=== PATIENT | female | born 2000 | race Caucasian/White ===

== ENCOUNTER 2021-07-29 19:58 | Emergency (ER) | payer MEDICAID, SELFPAY ==
[2021-07-29 19:59] VITALS: BP 145/102; PULSE 128; RESP 16; TEMP 36.1; O2SAT 98; BMI 40.2
--- NOTE | 2021-07-29 22:41 | ED.VIS.BACK ---
HPI History of Present Illness Chief Complaint: Back Informant: patient Narrative Narrative: Patient is a 21 old female denies any significant past medical history presenting with sudden onset of low back pain. Patient states she was getting undressed this afternoon to take a shower when she suddenly felt pain in her lower back. She states symptoms. Denies any saddle anesthesia. Is never had anything like this before. Denies any trauma or injury. Did not take anything for pain prior to arrival. it is on both sides. Does not radiate. Denies any bowel or bladder. Is not concerned for . Prior similar symptoms: No PFSH PFSH Medical History History of scoliosis Home Medications cyclobenzaprine 10 mg PO TID PRN #14 tab 07/29/21 [Rx Last Taken Unknown] ibuprofen 600 mg PO Q6H PRN PRN #20 tab 07/29/21 [Rx Last Taken Unknown] Allergy/AdvReac Type Severity Reaction Status Date / Time No Known Allergies Allergy Verified 05/24/17 09:36 Social History Smoking Status: Former smoker ROS ROS ED Constitutional Constitutional ED: Denies chills or fever(s) Eyes Eyes: Denies change in vision ENT ENT ED: Denies rhinorrhea or sore throat Cardiovascular Cardiovascular: Denies chest pain Respiratory/Chest Respiratory/Chest: Denies dyspnea Gastrointestinal Gastrointestinal: Denies abdominal pain, constipation, nausea or vomiting Genitourinary Genitourinary ED: Denies dysuria, hematuria or urinary frequency Musculoskeletal Musculoskeletal: Reports back pain; Denies arthralgias, myalgias or neck pain Integumentary Denies rash Neurologic Neurologic: Denies headache(s), paresthesias or weakness Psychiatric Psychiatric: Denies depression EXAM Physical Exam Narrative Exam Narrative: Patient standing in the room Const Vital Signs: 07/29/21 19:59 Temperature 96.9 F L Temperature Source Temporal Pulse Rate 128 H Respiratory Rate 16 Blood Pressure 145/102 H Blood Pressure Mean 116 Pulse Ox 98 Oxygen Delivery Method Room Air Positive well nourished and well developed General Appearance ED: well developed HEENT Reports moist mucous membranes Negative for tenderness Eyes PERRL and EOMs intact bilaterally Neck supple Neck Narrative: Normal ROM General: Negative for tenderness Resp normal respiratory effort and clear to auscultation bilaterally Cardio regular rate, regular rhythm and no murmurs GI normal to inspection, nondistended, normoactive bowel sounds Back/Spine normal to inspection Back/Spine Narrative: No midline tenderness. Patient points to bilateral L5/L4 area as her area of pain. Not significantly reproducible with palpation. Decreased range of motion, suspect secondary to pain. Normal bilateral patellar reflexes. Normal strength and sensation with plantar and dorsiflexion of the feet as well as flexion and extension of the legs. General Back: Negative for CVA tenderness Extremity normal to inspection General Extremety ED: Negative for edema or tenderness General Extremity: Negative for edema Neuro oriented x3 and no sensory deficits noted Sensorium / Orientation: alert Motor Exam: strength 5/5 throughout Skin no rashes or lesions noted and no wounds MDM MDM MDM Narrative Medical decision making narrative: Patient evaluated for atraumatic low back pain. She appears nontoxic in no acute distress. She does appear uncomfortable secondary to pain. On arrival she is hypertensive and tachycardic. I suspect this is a pain response. She is given ibuprofen and Flexeril in the ER for pain control. She declines IM morphine. She will be started on a course of NSAIDs and muscle relaxers. I suspect this is muscle skeletal. She does not have any focal neurologic deficits. No findings consistent with cauda equina syndrome. Counseled on return precautions and need for outpatient follow-up especially if her symptoms persist. Patient is counseled on signs and symptoms requiring return to the emergency room. Patient verbalizes agreement and understand this plan. Patient discharged home in stable and improved condition. Discharge Plan Triage Chief Complaint: Back ED Provider: Ayana Wilson Dx/Rx/DC Orders Clinical Impression: Acute lumbar back pain Instructions: ED Back Pain (Acute or Chronic), ED Back Spasm, No Trauma Prescriptions: New ibuprofen 600 mg tablet 600 mg PO Q6H PRN PRN (Reason: fever or pain) Qty: 20 RF: 0 cyclobenzaprine 10 mg tablet 10 mg PO TID PRN (Reason: muscle spasm) Qty: 14 RF: 0 Primary Care Provider: Care Physician,No Primary Referrals: Britany Forbes MD [STAFF PHYSICIAN] - Care Physician,No Primary [Primary Care Provider] - Disposition Disposition: Home, Self Care
[2021-07-29] MEDS: Ibuprofen 600 MG Tablet PO (23:18)
== END 2021-07-29 23:20 | disposition home or self-care (01) ==
LOC: ED 22:46
PROVIDERS: Emergency Provider Emergency Medicine
DX: M54.50 Low back pain, unspecified (principal); Z87.891 Personal history of nicotine dependence
CPT/HCPCS: 99283

== ENCOUNTER 2023-02-07 13:52 | Emergency (ER) | payer MEDICAID, SELFPAY ==
[2023-02-07 13:54] VITALS: BP 156/83; PULSE 150; RESP 18; TEMP 37.3; O2SAT 100; BMI 29.2
[2023-02-07 14:42] VITALS: TEMP 39.4
--- NOTE | 2023-02-07 14:54 | EX.ED.DYSGE1 ---
HPI <MARVA Curry - Last Filed: 02/07/23 16:08> History of Present Illness Chief Complaint: Sore Throat Narrative Narrative: Patient is a 23-year-old female with no significant medical history presents to the emergency department 2 days of sore throat, head pain, fever and chills. She also states to have been spotting for 2 weeks. She is unsure if she is or not. Patient denies any nausea or vomiting. Her son just got diagnosed with strep throat. She was tested however was negative. She also had a negative COVID-19 negative. She denies any nausea or vomiting. States he is only been taking NyQuil for pain. Denies any cough or shortness of breath. PFS <MARVA Curry - Last Filed: 02/07/23 16:08> [facility] Medical History (Updated 02/07/23 @ 16:06 by MARVA Curry) History of scoliosis Hx of Home Medications amoxicillin 875 mg-potassium clavulanate 125 mg tablet 1 tab PO BID #20 tabs 02/07/23 [Rx Last Taken Unknown] Allergy/AdvReac Type Severity Reaction Status Date / Time No Known Allergies Allergy Verified 02/07/23 13:57 Social History Smoking Status: Former smoker ROS <MARVA Curry - Last Filed: 02/07/23 16:08> ROS ED ROS Narrative Constitutional: Negative for weight loss, weakness. Positive fever and chills Eyes: Negative for vision loss, vision change, double vision ENT: Positive for any sore throat, ear pain, congestion Cardiovascular: Negative for any chest pain, tightness, palpitations Respiratory: Negative for any cough, sputum production, hemoptysis, dyspnea, dyspnea on exertion, orthopnea Gastrointestinal: Negative for any abdominal pain, nausea, vomiting, diarrhea, constipation, blood in stool, blood in vomit : Negative for any urinary frequency, dysuria, retention, blood in urine. Vaginal spotting Muscle skeletal: Negative for any muscle joint pain, stiffness, arthralgias, neck pain, back pain. Myalgias Neurological: Negative for any headache, syncope, numbness or tingling, dizziness Skin: Negative for any rashes, lumps, itching, abrasions, lacerations Psychiatric: Negative for any depression, anxiety, stress, suicidal ideation, homicidal ideation Hematologic: Negative for any easy bruising, excessive bruising, easy bleeding Allergies: Negative for any eczema, hives, rash EXAM <Judah ClayMARVA caldera - Last Filed: 02/07/23 16:08> Physical Exam Const Vital Signs: 02/07/23 13:54 02/07/23 14:42 02/07/23 14:47 Temperature 99.2 F H 102.9 F H Temperature Source Temporal Oral Pulse Rate 150 H Respiratory Rate 18 Respiratory Effort Normal Respiratory Pattern Normal Blood Pressure 156/83 H Blood Pressure Mean 107 Pulse Ox 100 Oxygen Delivery Method Room Air <Dr. Ankit Lopez DO - Last Filed: 02/07/23 16:18> Physical Exam Narrative Exam Narrative: Vital signs reviewed. HEET: Head normocephalic atraumatic, TMs clear bilaterally. Posterior pharynx is clear, moist mucous membranes. Nares clear bilaterally. Positive for +3 tonsils, erythema, exudate bilaterally. There is no uvula deviation, there is no unilateral swelling. Patient speak complete senses, negative for any stridor or trismus. Neck: Supple with no lymphadenopathy or tenderness. No signs of meningismus, negative jolt sign. Cardiac: Tachycardic rate no murmurs gallops or rubs, equal peripheral pulses bilaterally. Respiratory: Lungs clear to auscultation bilaterally. No chest tenderness. Abdomen: Soft, nontender, nondistended. No abdominal bruit or pulsatile masses. No hepatosplenomegaly Extremities: No peripheral edema, no signs of gross trauma or deformity. Active full range of motion of all extremities. Neuro: Cranial nerves II through XII intact, no focal neurological deficits. Skin: Clean dry and intact with no rash, purpura, petechiae, vesicles or pustules. Backs/flank: No CVA tenderness, no midline spinal tenderness, no deformity. Psych: Normal mood and affect. No SI, HI or acute psychosis. Const Vital Signs: 02/07/23 13:54 02/07/23 14:42 02/07/23 14:47 Temperature 99.2 F H 102.9 F H Temperature Source Temporal Oral Pulse Rate 150 H Respiratory Rate 18 Respiratory Effort Normal Respiratory Pattern Normal Blood Pressure 156/83 H Blood Pressure Mean 107 Pulse Ox 100 Oxygen Delivery Method Room Air [facility] <Judah Carmona C D AREA SUPERVISOR-C - Last Filed: 02/07/23 16:08> [facility] Narrative Medical decision making narrative: Vital signs reviewed. HEET: Head normocephalic atraumatic, TMs clear bilaterally. Posterior pharynx is clear, moist mucous membranes. Nares clear bilaterally. Positive for +3 tonsils, erythema, exudate bilaterally. There is no uvula deviation, there is no unilateral swelling. Patient speak complete senses, negative for any stridor or trismus. Neck: Supple with no lymphadenopathy or tenderness. No signs of meningismus, negative jolt sign. Cardiac: Tachycardic rate no murmurs gallops or rubs, equal peripheral pulses bilaterally. Respiratory: Lungs clear to auscultation bilaterally. No chest tenderness. Abdomen: Soft, nontender, nondistended. No abdominal bruit or pulsatile masses. No hepatosplenomegaly Extremities: No peripheral edema, no signs of gross trauma or deformity. Active full range of motion of all extremities. Neuro: Cranial nerves II through XII intact, no focal neurological deficits. Skin: Clean dry and intact with no rash, purpura, petechiae, vesicles or pustules. Backs/flank: No CVA tenderness, no midline spinal tenderness, no deformity. Psych: Normal mood and affect. No SI, HI or acute psychosis. Lab Data Labs: Laboratory Results - last 24 hr 02/07/23 02/07/23 14:49 15:16 Urine Color Yellow Urine Clarity Sl. Cloudy Urine pH 6.5 Ur Specific [place] 1.015 Urine Protein 30 H Urine Glucose (UA) Normal Urine Ketones 150 A* Urine Occult Blood 150 H Urine Nitrite Negative Urine Bilirubin Negative Urine Urobilinogen 4 H Ur Leukocyte Esterase 25 H Urine RBC 0-5 SEEN Urine WBC 0-5 SEEN Ur Squamous Epith Cells 0-5 SEEN Urine Bacteria 1+ Urine Mucus 0 SEEN Urine Test Negative Monoscreen Negative Treatment and Re-Evaluation :: Patient appears uncomfortable, patient's repeat temperature was 102.9, patient presents emerged part with sore throat, head pain for 2 days. Patient did have negative COVID-19, negative strep test. The patient will be tested for as well as UTI secondary to the vaginal spotting. Patient will also be tested for mononucleosis, if this is negative, the patient's is negative, the patient will be given ibuprofen as well as dexamethasone. Secondary to the patient's physical presentation, elevated Centor score, I do believe that antibiotics is appropriate. Patient's urinalysis was negative for infection. Patient is not . Patient's monotest was negative. At this time, I do believe that is necessary to treat the patient with Augmentin, patient be given dexamethasone one-time here, as well as ibuprofen. She was given education regarding fever clay thrower such as Tylenol, ibuprofen. She will also follow-up with RESOURCE RO[employer] SPECIAL EDUCATION TEACHER for her spotting. Patient is happy with the plan of care, all questions answered. <Dr. Ankit Lopez, DO - Last Filed: 02/07/23 16:18> [facility] MDM Narrative Medical decision making narrative: Patient appears uncomfortable, patient's repeat temperature was 102.9, patient presents emerged part with sore throat, head pain for 2 days. Patient did have negative COVID-19, negative strep test. The patient will be tested for as well as UTI secondary to the vaginal spotting. Patient will also be tested for mononucleosis, if this is negative, the patient's is negative, the patient will be given ibuprofen as well as dexamethasone. Secondary to the patient's physical presentation, elevated Centor score, I do believe that antibiotics is appropriate. Patient's urinalysis was negative for infection. Patient is not . Patient's monotest was negative. At this time, I do believe that is necessary to treat the patient with Augmentin, patient be given dexamethasone one-time here, as well as ibuprofen. She was given education regarding fever clay thrower such as Tylenol, ibuprofen. She will also follow-up with [employer] SPECIAL EDUCATION TEACHER for her spotting. Patient is happy with the plan of care, all questions answered. This patient was seen with a PA/C D AREA SUPERVISOR Individually assessed they patient including history and physical. I have reviewed everything on the chart that is available and agree with the documentation provided by the PA/C D AREA SUPERVISOR including discussion about the assessment, treatment plan, discussion, and return precautions. Patient presenting with fever, sore throat. Her child tested positive for strep and she tested negative. She tells me that she does not believe they actually swab her tonsils and they probably swabbed her tongue. She was tested for mono today and it was negative. Given her sore throat is reasonable to treat her as strep throat given she has a sick child that has strep. Patient also wanted tested for because she is spotting. This was negative. Patient's fever is improved with ibuprofen and she will be discharged home in stable condition. Lab Data Labs: Laboratory Results - last 24 hr 02/07/23 02/07/23 14:49 15:16 Urine Color Yellow Urine Clarity Sl. Cloudy Urine pH 6.5 Ur Specific [place] 1.015 Urine Protein 30 H Urine Glucose (UA) Normal Urine Ketones 150 A* Urine Occult Blood 150 H Urine Nitrite Negative Urine Bilirubin Negative Urine Urobilinogen 4 H Ur Leukocyte Esterase 25 H Urine RBC 0-5 SEEN Urine WBC 0-5 SEEN Ur Squamous Epith Cells 0-5 SEEN Urine Bacteria 1+ Urine Mucus 0 SEEN Urine Test Negative Monoscreen Negative Discharge Plan Triage Chief Complaint: Sore Throat ED Midlevel Provider: Judah Carmona ED Provider: Ankit Lopez Dx/Rx/DC Orders Clinical Impression: Pharyngitis, Fever Instructions: ED Fever Control (Adult), ED Pharyngitis, Report Pending Prescriptions: New amoxicillin-pot clavulanate 875-125 mg tablet 1 tab PO BID Qty: 20 0RF Primary Care Provider: Care Physician,No Primary Referrals: Care Physician,No Primary [Primary Care Provider] - Activity Restrictions/Additional Instructions: Please take antibiotics until finished. Follow-up with your [employer] SPECIAL EDUCATION TEACHER Disposition Disposition: Home, Self Care
[2023-02-07] MEDS: Acetaminophen 500 MG Tablet 1000 MG PO (14:57)
[2023-02-07 15:22] LABS: Mucous, Urine 0 SEEN /hpf (<or=2+)
[2023-02-07 15:25] LABS: Color, Urine Yellow (Yellow); Glucose, Dipstick Normal (Normal); Leukocyte Esterase-Dipstick 25 /ul (Negative); Nitrite-Dipstick Negative (Negative); Occult Blood-Urine 150 /ul (Negative); Protein-Dipstick 30 mg/dl (Negative); Specific Gravity, Urine 1.015 (1.002-1.030); Urine Bilirubin Dipstick Negative (Negative); Urine Clarity Sl. Cloudy (Clear); Urine Urobilinogen 4 mg/dl (Normal); Urine pH 6.5 (5.0 - 8.0)
[2023-02-07 15:33] LABS: Ketone-Dipstick 150 mg/dl (Negative)
[2023-02-07 15:34] LABS: Red Blood Cells-Urine 0-5 SEEN /hpf (0-5); White Blood Cells 0-5 SEEN /hpf (0-5)
[2023-02-07 15:35] LABS: Bacteria 1+ /hpf (None Seen); Internal QC Validated? YES +Cl - CLEAR BKGD; Pregnancy, Urine Negative Negative; Squamous Epithelial Cells - UA 0-5 SEEN /hpf (5-10)
[2023-02-07 15:46] LABS: Internal QC Validated? YES +Cl - CLEAR BKGD; Monotest Negative (Negative)
[2023-02-07] MEDS: dexAMETHasone 4 MG Tablet 12 MG PO (16:17)
[2023-02-07] MEDS: Ibuprofen 600 MG Tablet PO (16:17)
[2023-02-07] MEDS: Amox/Clavulanate 875 MG Tablet PO (16:18)
== END 2023-02-07 16:23 | disposition home or self-care (01) ==
PROVIDERS: Nurse Practitioner; Emergency Provider Student in an Organized Health Care Education/Training Program; Visit Provider Student in an Organized Health Care Education/Training Program
DX: J02.9 Acute pharyngitis, unspecified (principal); Z87.891 Personal history of nicotine dependence; R50.9 Fever, unspecified
CPT/HCPCS: 81001; 81025; 86308; 99284

== ENCOUNTER 2023-02-16 13:22 | Emergency (ER) | payer MEDICAID, SELFPAY ==
[2023-02-16 13:23] VITALS: BP 128/85; PULSE 85; RESP 18; TEMP 35.7; O2SAT 99; BMI 28.5
--- NOTE | 2023-02-16 13:48 | EX.ED.DYSGE1 ---
HPI History of Present Illness Chief Complaint: Rash Detail of Chief Complaint: Recurrent raised red erythematous painful lesions predominantly hands and f Onset/Context/Timing Onset: Today Context: Sudden Onset Timing: Continuous Quality: Pain Location: Hands, forearm and in past knees Current Severity: Moderate Maximum Severity: Severe Worsened by: Nothing specific Relieved by: Nothing Associated Symptoms Associated Symptoms: None Narrative Narrative: Patient is a 23-year-old female with recurrent painful raised erythematous lesions on the fingers, hands, forearms presently. She reports prior lesions on her knees. She states she does not believe it is contagious since her family members have not gotten it i.e. son. She denies fever, chills night sweats. She denies myalgias arthralgias. She denies weight gain or weight loss. She denies swelling of her joints. Prior similar symptoms: Yes Recent Illness/Hospitalization: No PFSH PFSH Medical History History of scoliosis Hx of Home Medications amoxicillin 875 mg-potassium clavulanate 125 mg tablet 1 tab PO BID #20 tabs 02/07/23 [Rx Last Taken Unknown] Allergy/AdvReac Type Severity Reaction Status Date / Time No Known Allergies Allergy Verified 02/07/23 13:57 Social History (Updated 02/16/23 @ 13:[address] Yovanny Marquez MD) household members: children Smoking Status: Former smoker ROS ROS ED Constitutional Constitutional ED: Denies chills, subjective, sweats or weight loss Musculoskeletal Musculoskeletal: Denies arthralgias or myalgias Integumentary Reports rash Hematologic/Lymphatic Hematologic/Lymphatic: Reports systems reviewed and no addt'l complaints, except as documented Allergic/Immunologic Allergic/Immunologic ED: Reports other Details: No oral lesions. ; Denies mouth swelling, tongue swelling or urticaria EXAM Physical Exam Const Vital Signs: 02/16/23 13:23 Temperature 96.2 F L Temperature Source Temporal Pulse Rate 85 Respiratory Rate 18 Blood Pressure 128/85 H Blood Pressure Mean 99 Pulse Ox 99 Oxygen Delivery Method Room Air Positive well nourished and well developed General Appearance ED: well developed and NAD; Negative for pallor HEENT Reports moist mucous membranes HEENT Narrative: No oral mucosal lesions. Eyes PERRL and EOMs intact bilaterally Eyes Narrative: Conjunctive a normal no lesions. General Eye ED: Negative for pale conjunctiva Neck no lymphadenopathy, supple and no JVD Resp normal respiratory effort Cardio regular rate and regular rhythm Extremity Negative for normal to inspection Extremity Narrative: There are numerous raised erythematous lesions of varying size fingers, hands and forearms. There is no epitrochlear adenopathy. There is no axillary lymphadenopathy. There is no ulcerative lesions noted. There is no blistering noted. Neuro oriented x3 and CN's II-XII intact bilaterally Skin no wounds and skin turgor normal General Skin Exam: elasticity normal; Negative for jaundice or pallor Rashes: rashes noted Previously described other MDM MDM MDM Narrative Medical decision making narrative: We will have another physician look at the rash since I am uncertain the etiology. Treatment and Re-Evaluation :: Patient was informed the cause of the rash or the type of rash she has is unknown. She was referred to dermatology. Discharge Plan Triage Chief Complaint: Rash ED Provider: Yovanny Marquez Dx/Rx/DC Orders Clinical Impression: Macular erythematous rash Instructions: ED Erythema Prescriptions: No Action amoxicillin-pot clavulanate 875-125 mg tablet 1 tab PO BID Qty: 20 0RF Primary Care Provider: Care Physician,No Primary Referrals: Brook Ernst MD [Non-Staff] - As soon as possible Care Physician,No Primary [Primary Care Provider] - Disposition Disposition: Home, Self Care
== END 2023-02-16 14:24 | disposition home or self-care (01) ==
PROVIDERS: Emergency Provider Emergency Medicine; Visit Provider Emergency Medicine
DX: R21 Rash and other nonspecific skin eruption (principal); Z87.891 Personal history of nicotine dependence
CPT/HCPCS: 99282

== ENCOUNTER 2023-03-14 23:18 | Emergency (ER) | payer MEDICAID, SELFPAY ==
[2023-03-14 23:19] VITALS: BP 117/82; PULSE 108; RESP 16; TEMP 36.6; O2SAT 99; BMI 27.8
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
== END 2023-03-14 23:58 | disposition home or self-care (01) ==
LOC: ED 23:38
PROVIDERS: Emergency Provider Emergency Medicine; Visit Provider Emergency Medicine
DX: R21 Rash and other nonspecific skin eruption (principal); Z87.891 Personal history of nicotine dependence
CPT/HCPCS: 99282